=== PATIENT | female | born 1960 | race Caucasian/White ===

== ENCOUNTER 2019-07-27 12:05 | Emergency (ER) | payer MEDICAID ==
[~2019-07-27] VITALS: Ht 157.5 cm; Wt 72.1 kg
[2019-07-27 12:47] VITALS: BP 140/69
--- NOTE | 2019-07-27 12:51 | NUR ---
WAIT AT LOBBY.HANDED ON URINE CUP.
--- NOTE | 2019-07-27 14:27 | NUR ---
59 Y/O FEMALE PRESENTS WITH LOW BACK PAIN, CHILLS, SUBJECTIVE FEVER X2 DAYS. DENIES ANY BURNING DURING URINATION, FREQUENCY. DENIES INJURY. PT HAS BEEN SELF MEDICATING WITH TYLENOL, BUT EXPERIENCES NO RELIEF. PT REPORTS IT HURTS TO WALK AND PERFORM ADL'S. RESP EVEN AND UNLABORED. LUNG SOUNDS CLEAR IN BILAT BAILEY. AAOX4. SKIN COOL/DRY/INTACT. NKA
[2019-07-27] MEDS ORDERED: KETOROLAC 30 MG/ML VIAL IM ONE (14:45)
[2019-07-27 17:41] VITALS: BP 110/68
--- NOTE | 2019-07-27 17:41 | NUR ---
Patient discharged with v/s stable. Written and verbal after care instructions given and explained. Patient alert, oriented and verbalized understanding of instructions. Ambulatory with steady gait. All questions addressed prior to discharge. ID band removed. Patient advised to follow up with PMD. Rx of FLEXIRIL, NAPROSYN given. Patient educated on indication of medication including possible reaction and side effects. Opportunity to ask questions provided and answered.
== END 2019-07-27 17:41 | disposition home or self-care (01) ==
LOC: MED 12:05
DX: M54.5 Low back pain (principal); I10 Essential (primary) hypertension; Z90.49 Acquired absence of other specified parts of digestive tract
CPT/HCPCS: 81002; 96372; 99283; J1885

== ENCOUNTER 2022-02-10 12:52 | Emergency (ER) | payer BC, MEDICAID ==
[~2022-02-10] VITALS: Ht 152.4 cm; Wt 67.7 kg
[2022-02-10 13:04] VITALS: BP 136/78
--- NOTE | 2022-02-10 13:09 | NUR ---
PT AMB TO BED 12.
--- NOTE | 2022-02-10 13:27 | NUR ---
urine walked down to lab and given to ronda kaufman
--- NOTE | 2022-02-10 13:30 | NUR ---
61 y/o female, pt presents to ed with c/o lower abd pain for 4 days, pt states she has been having dysuria with low back pain. denies fever, chills, body aches, nausea, vomiting, diarrhea, hematuria. pt a&ox4, ambulates with even and steady gait. lung sounds clear, heart sounds regular and even. pmh: htn, cholecystectomy nka med: denies
[2022-02-10] MEDS ORDERED: NITR100C7 PO ×3 (13:37→16:58)
[2022-02-10 14:06] LABS: APPEARANCE,URINE SL CLOUDY (CLEAR); BILIRUBIN,URINE NEGATIVE (NEGATIVE); BLOOD, URINE 1+ (NEGATIVE); COLOR,URINE YELLOW (YELLOW); LEUKOCYTE ESTERASE ,URINE 3+ (NEGATIVE); NITRITE, URINE NEGATIVE (NEGATIVE); UGLUCOSE NEGATIVE (NEGATIVE)
[2022-02-10 14:32] LABS: RBC,URINE 0-5 /HPF (0-5); TRICHOMONAS,URINE None Seen /HPF (None Seen); WBC,URINE 16-25 (MOD) /HPF (0-5); YEAST,URINE None Seen /HPF (None Seen)
[2022-02-10 14:52] VITALS: BP 136/78
--- NOTE | 2022-02-10 14:53 | NUR ---
Patient discharged with v/s stable. Written and verbal after care instructions given and explained. Patient alert, oriented and verbalized understanding of instructions. Ambulatory with steady gait. All questions addressed prior to discharge. ID band removed. Patient advised to follow up with PMD. Rx of macrobid (sent) given. Patient educated on indication of medication including possible reaction and side effects. Opportunity to ask questions provided and answered.
== END 2022-02-10 14:52 | disposition home or self-care (01) ==
LOC: MED 12:52
DX: N39.0 Urinary tract infection, site not specified (principal); I10 Essential (primary) hypertension; Z90.49 Acquired absence of other specified parts of digestive tract; Z79.899 Other long term (current) drug therapy
CPT/HCPCS: 81001; 81025; 87086; 99283

== ENCOUNTER 2022-06-13 08:44 | Emergency (ER) | payer BC, MEDICAID ==
[~2022-06-13] VITALS: Ht 154.9 cm; Wt 72.1 kg
[~2022-06-13 08:44] MED LIST: NITR100C7 PO
[2022-06-13 08:56] VITALS: BP 132/91
--- NOTE | 2022-06-13 09:11 | NUR ---
COVID AND FLU SWAB COLLECTED
[2022-06-13] MEDS ORDERED: KETOROLAC 30 MG/ML VIAL IM ONE (09:45)
--- NOTE | 2022-06-13 10:00 | NUR ---
PATIENT PRESENTS TO ED WITH CONGESTION AND COLD SYMPTOMS . DENIES N/V/D; SKIN IS PINK/WARM/DRY; AAOX4 WITH EVEN AND STEADY GAIT; LUNGS CLEAR BL; HR EVEN AND REGULAR; PATIENT STATES PAIN OF 0/10 AT THIS TIME; VSS; PATIENT POSITIONED FOR COMFORT; HOB ELEVATED; BEDRAILS UP X2; BED DOWN. ER MD MADE AWARE OF PT STATUS.
[2022-06-13] MEDS ORDERED: DEXT118S25 PO (11:31)
[2022-06-13] MEDS ORDERED: PSEU120T23 PO (11:31)
[2022-06-13] MEDS ORDERED: ACET-10509 PO (11:32)
[2022-06-13 11:42] VITALS: BP 128/86
--- NOTE | 2022-06-13 11:42 | NUR ---
Patient discharged with v/s stable. Written and verbal after care instructions ABOUT UPPER RESPIRATORY INFECTION AND TENSION HEADACHE given and explained. Patient alert, oriented and verbalized understanding of instructions. Ambulatory with steady gait. All questions addressed prior to discharge. ID band removed. Patient advised to follow up with PMD. Rx of TYLENOL EXTRA STRENGHT, GUAIFENSIN/DEXTROMETHOPRHAN, SUDAFED 12 HR given. Patient educated on indication of medication including possible reaction and side effects. Opportunity to ask questions provided and answered.
== END 2022-06-13 11:42 | disposition home or self-care (01) ==
LOC: MED 08:44
DX: J06.9 Acute upper respiratory infection, unspecified (principal); Z20.822 Contact with and (suspected) exposure to COVID-19; G44.201 Tension-type headache, unspecified, intractable; I10 Essential (primary) hypertension; Z79.899 Other long term (current) drug therapy
CPT/HCPCS: 87426; 87804; 96372; 99283; J1885

== ENCOUNTER 2022-09-28 22:34 | Emergency (ER) | payer BC, MEDICAID ==
[~2022-09-28] VITALS: Ht 157.5 cm; Wt 69.9 kg
[~2022-09-28 22:34] MED LIST changes: +ACET-10509 PO; +DEXT118S25 PO; +PSEU120T23 PO
[2022-09-28 22:51] VITALS: BP 149/87
--- NOTE | 2022-09-28 22:57 | NUR ---
PT TO BED 3 FOLLOWING TRIAGE
[2022-09-28 23:16] LABS: BASOPHILS % (AUTO) 0.7 % (0.0-2.0); EOSINOPHILS # (AUTO) 0.1 K/uL (0-0.4); EOSINOPHILS % (AUTO) 1.2 % (0.0-4.0); HEMATOCRIT 37.3 % (36-48); HEMOGLOBIN 12.4 g/dL (12.0-16.0); LYMPHOCYTES % (AUTO) 46.1 % (20.5-51.1); MEAN CORPUSCULAR HEMOGLOBIN 28 pg (27-31); MEAN CORPUSCULAR HGB CONC 33 g/dL (33-37); MEAN CORPUSCULAR VOLUME 85.1 fL (80-94); MONOCYTES # (AUTO) 0.5 K/uL (0.8-1.0); NEUTROPHILS # (AUTO) 2.9 K/uL (1.8-7.7); PLATELET COUNT (AUTO) 279 K/uL (140-450); RED BLOOD CELL COUNT(AUTO) 4.38 MIL/uL (4.20-5.40); RED CELL DISTRIBUTION WIDTH 14.1 % (11.6-13.7); WHITE BLOOD COUNT (AUTO) 6.5 K/uL (4.8-10.8)
[2022-09-28 23:37] LABS: ALBUMIN 3.7 g/dL (3.4-5.0); ANION GAP 10.1 (8-16); CARBON DIOXIDE 30.5 mmol/L (21-32); CREATININE 0.7 mg/dL (0.6-1.3); POTASSIUM 3.6 mmol/L (3.5-5.1); TOTAL BILIRUBIN 0.2 mg/dL (0.0-1.0)
[2022-09-29 02:37] VITALS: BP 149/87
--- NOTE | 2022-09-29 02:37 | NUR ---
Patient discharged with v/s stable. Written and verbal after care instructions given and explained. Patient verbalized understanding. Ambulatory with steady gait. All questions addressed prior to discharge. Advised to follow up with PMD.
== END 2022-09-29 02:37 | disposition home or self-care (01) ==
LOC: MED 22:34
DX: R07.9 Chest pain, unspecified (principal); Z79.899 Other long term (current) drug therapy
CPT/HCPCS: 36415; 71045; 80053; 83880; 84484; 85025; 85379; 93005; 99285; Q0092

== ENCOUNTER 2024-03-17 09:16 | Emergency (ER) | payer MEDICAID ==
[~2024-03-17] VITALS: Ht 149.9 cm; Wt 71.2 kg
[~2024-03-17 09:16] MED LIST changes: -ACET-10509 PO; +ACET500T99 PO
[2024-03-17 09:23] VITALS: BP 139/88; PULSE 79; RESP 18; TEMP 97.2; O2SAT 100
[2024-03-17 10:20] LABS: BASOPHILS % (AUTO) 0.6 % (0.0-2.0); EOSINOPHILS % (AUTO) 0.4 % (0.0-4.0); HEMATOCRIT 38.9 % (36-48); HEMOGLOBIN 12.8 g/dL (12.0-16.0); MEAN CORPUSCULAR HEMOGLOBIN 28 pg (27-31); MEAN CORPUSCULAR HGB CONC 33 g/dL (33-37); MONOCYTES # (AUTO) 0.3 K/uL (0.8-1.0); MONOCYTES % (AUTO) 5.7 % (1.7-9.3); NEUTROPHILS # (AUTO) 3.6 K/uL (1.8-7.7); NEUTROPHILS % (AUTO) 59.3 % (42.2-75.2); PLATELET COUNT (AUTO) 274 K/uL (140-450); RED BLOOD CELL COUNT(AUTO) 4.52 MIL/uL (4.20-5.40); RED CELL DISTRIBUTION WIDTH 13.1 % (11.6-13.7)
[2024-03-17 10:36] LABS: ANION GAP 6.9 (8-16); CALCIUM 8.8 mg/dL (8.5-10.1); CARBON DIOXIDE 31.8 mmol/L (21-32); CREATININE 0.6 mg/dL (0.6-1.3); POTASSIUM 3.7 mmol/L (3.5-5.1)
[2024-03-17 11:54] VITALS: BP 138/74; PULSE 66; RESP 16; TEMP 97.2; O2SAT 99
== END 2024-03-17 11:54 | disposition home or self-care (01) ==
LOC: MED 09:16
DX: R07.2 Precordial pain (principal); I10 Essential (primary) hypertension; E78.5 Hyperlipidemia, unspecified; Z79.899 Other long term (current) drug therapy
CPT/HCPCS: 36415; 71045; 80048; 84484; 85025; 93005; 99285